=== PATIENT | female | born 1975 | race Caucasian/White ===

== ENCOUNTER 2021-07-01 13:00 | Emergency (ER) | payer OTHER ==
[2021-07-01 14:20] LABS: IMMATURE GRANULOCYTES 0.1 % (0.0-5.0); MEAN CELL VOLUME 96.2 fL CALC (80.0-100.0); MEAN CORPUSCULAR HGB CONC 34.3 g/dL CAL (32.0-36.0); NEUT# 4.73 thou/uL (2.00-7.15); RED BLOOD COUNT 3.64 mill/uL (4.20-5.60); RED CELL DISTRI WIDTH 12.2 % (11.5-15.5)
[2021-07-01 14:33] LABS: ALBUMIN 3.8 g/dL (3.2-5.0); ALKALINE PHOSPHATASE 34 u/l (38-126); ANION GAP 11 (6-22 (CALC)); BILIRUBIN, TOTAL 0.2 mg/dL (0.0-1.4); BUN 9 mg/dL (7-17); BUN/CREATININE RATIO 21 (12-20 (CALC)); CARBON DIOXIDE 24 mmol/l (22-30); CHLORIDE 105 mmol/l (95-108); CREATININE 0.4 mg/dL (0.5-1.0); GFR > 60 ML/MIN (>=60 (CALC)); GFR FOR AFR.AMER. > 60 ML/MIN (>=60 (CALC)); LIPASE 188 u/l (23-300); POTASSIUM 4.1 mmol/l (3.5-5.1); SGOT/AST 21 u/l (14-36); SODIUM 136 mmol/l (137-146); TOTAL PROTEIN 6.5 g/dL (6.3-8.2)
[2021-07-01 14:42] LABS: MYOGLOBIN 18 ng/mL (0 - 62)
[2021-07-01] MEDS ORDERED: FLEXERIL5 M1 PO (16:21)
[2021-07-01 16:26] VITALS: BP 124/57
== END 2021-07-01 16:47 | disposition home or self-care (01) | DRG 563 ==
LOC: ED 13:00
DX: S29.012A Strain of muscle and tendon of back wall of thorax, initial encounter (principal); F41.9 Anxiety disorder, unspecified; F32.9 Major depressive disorder, single episode, unspecified; X50.0XXA Overexertion from strenuous movement or load, initial encounter; Y93.F9 Activity, other caregiving; Y99.0 Civilian activity done for income or pay; Z20.822 Contact with and (suspected) exposure to COVID-19
CPT/HCPCS: Q9967